=== PATIENT | female | born 1995 | race Caucasian/White ===

== ENCOUNTER 2016-10-23 03:51 | Emergency (ER) | payer MEDICAID, OTHER ==
--- NOTE | 2016-10-23 04:06 | C.PDOC ---
History Of Present Illness Patient presents to the ER with a complaint of RUQ pain that worsens with bowel movements. Denies fever, chills, nausea, or vomiting. Time Seen by Provider: 10/23/16 04:06 Chief Complaint (Nursing): Abdominal Pain History Per: Patient History/Exam Limitations: no limitations Onset/Duration Of Symptoms: Hrs Current Symptoms Are (Timing): Still Present Severity: Moderate Pain Scale Rating Of: 4 Location Of Pain/Discomfort: RUQ Radiation Of Pain To:: None Quality Of Discomfort: Unable To Describe Associated Symptoms: denies: Fever, Chills, Nausea, Vomiting Exacerbating Factors: None Alleviating Factors: None Recent travel outside of the [place]: No Abnormal Vaginal Bleeding: No Past Medical History Reviewed: Historical Data, Nursing Documentation, Vital Signs Vital Signs: Last Vital Signs Temp 98.8 F 10/23/16 04:07 Pulse 118 H 10/23/16 04:07 Resp 18 10/23/16 04:07 BP 111/75 10/23/16 04:07 Pulse Ox 100 10/23/16 06:16 - Medical History PMH: No Chronic Diseases Surgical History: No Surg Hx Family History: States: No Known Family Hx - Social History Hx Tobacco Use: No Hx Alcohol Use: No Hx Substance Use: No - Immunization History Hx Tetanus Toxoid Vaccination: No Hx Influenza Vaccination: Yes Hx Pneumococcal Vaccination: No Review Of Systems Constitutional: Negative for: Fever, Chills Gastrointestinal: Positive for: Abdominal Pain. Negative for: Nausea, Vomiting Physical Exam - Physical Exam Appears: Non-toxic Skin: Warm, Dry Oral Mucosa: Moist Chest: Symmetrical, No Tenderness Cardiovascular: Rhythm Regular, No Murmur Respiratory: No Rales, No Rhonchi, No Wheezing Gastrointestinal/Abdominal: Soft, Tenderness (RUQ) Neurological/Psych: Oriented x3 ED Course And Treatment - Laboratory Results Result Diagrams: 10/23/16 06:07 O2 Sat by Pulse Oximetry: 100 Pulse Ox Interpretation: Normal Progress Note: CT abd/pel and blood work ordered. Pepcid, toradol, and IV fluids administered. Disposition Counseled Patient/Family Regarding: Studies Performed, Diagnosis - Disposition Disposition Time: 04:06 Condition: UNKNOWN Forms: [facility] (Guinean) - Clinical Impression Clinical Impression: Abdominal pain - Scribe Statement The provider has reviewed the documentation as recorded by the Scribe Wai Amor All medical record entries made by the Scribe were at my direction and personally dictated by me. I have reviewed the chart and agree that the record accurately reflects my personal performance of the history, physical exam, medical decision making, and the department course for this patient. I have also personally directed, reviewed, and agree with the discharge instructions and disposition. Physician Patient Turnover Patient Signed Over To: Karuna Andrews Handoff Comments: pending labs, ct scan and dispo
[2016-10-23 04:12] VITALS: O2SAT 100
[2016-10-23 04:43] LABS: RBC URINE 21 /hpf (0-3); URINE BACTERIA RARE (<OCC); URINE BILIRUBIN NEGATIVE (NEGATIVE); URINE BLOOD 2+ (NEGATIVE); URINE COLOR Yellow (YELLOW); URINE GLUCOSE (UA) NORMAL (Normal); URINE KETONE TRACE mg/dL (NEGATIVE); URINE LEUKOCYTE ESTERASE 1+ Leu/uL (Negative); URINE PROTEIN NEGATIVE (NEGATIVE); URINE UROBILINOGEN NORMAL mg/dL (0.2-1.0); WBC URINE 9 /hpf (0-5)
[2016-10-23] MEDS ORDERED: Sodium Chloride 0.9% 1,000 ML IV ONE (05:36)
[2016-10-23] MEDS ORDERED: Sodium Chloride 0.9% 1,000 ML ONE (05:53)
[2016-10-23 06:12] LABS: BASO # 0.1 K/uL (0.0-0.2); BASO % 0.5 % (0.0-2.0); EOS # 0.1 K/uL (0.0-0.7); EOS % 0.5 % (0.0-4.0); HEMATOCRIT 40.6 % (34.0-47.0); LYMPH # 1.3 K/uL (1.0-4.3); LYMPH % 8.6 % (20.0-40.0); MEAN CELL VOLUME 80.6 fL (81.0-99.0); MEAN CORPUSCULAR HEMOGLOBIN 27.6 pg (27.0-31.0); MEAN CORPUSCULAR HGB CONC 34.2 g/dL (33.0-37.0); MEAN PLATELET VOLUME 7.7 fL (7.2-11.7); MONO # 1.3 K/uL (0.0-0.8); MONO % 8.8 % (0.0-10.0); PLATELET COUNT 216 K/uL (130-400); RED CELL DISTRIBUTION WIDTH 13.4 % (11.5-14.5); WHITE BLOOD COUNT 15.2 K/uL (4.8-10.8)
[2016-10-23] MEDS ORDERED: cefTRIAXone IV 1 gm in Dextros 50 ML IVPB ONE ×2 (06:16→06:24)
[2016-10-23 06:51] LABS: CHLORIDE 100 mmol/L (98-107); POTASSIUM 3.6 mmol/L (3.6-5.2); SODIUM 138 mmol/L (132-148)
[2016-10-23 06:53] LABS: CARBON DIOXIDE 23 mmol/L (22-30); GFR AFRICAN-AMERICAN > 60
[2016-10-23 06:54] LABS: ALB/GLOB RATIO 1.1 (1.0-2.1); ALKALINE PHOSPHATASE 59 U/L (38-126); ALT/SGPT 130 U/L (9-52); AST/SGOT 48 U/L (14-36); BLOOD UREA NITROGEN 12 mg/dL (7-17); GLUCOSE,RANDOM 126 mg/dL (65-105); TOTAL PROTEIN 6.7 g/dL (6.3-8.3)
[2016-10-23 06:56] LABS: NEUTROPHIL 77 % (50-75); TOTAL CELLS COUNTED 100
[2016-10-23] MEDS ORDERED: Iodixanol 320 MG/ML 100 ML BOTTLE IV ONE (07:49)
--- NOTE | 2016-10-23 09:06 | CT ---
PROCEDURE: CT Abdomen and Pelvis with contrast HISTORY: ruq pain COMPARISON: None. TECHNIQUE: Contrast dose: 100 mL Visipaque 320 Radiation dose: Total exam DLP = 1141.84 mGy-cm. This CT exam was performed using one or more of the following dose reduction techniques: Automated exposure control, adjustment of the mA and/or kV according to patient size, and/or use of iterative reconstruction technique. FINDINGS: LOWER THORAX: Unremarkable LIVER: Mild hepatomegaly. Diffuse fatty infiltration. No mass. No intrahepatic biliary ductal dilatation. GALLBLADDER AND BILE DUCTS: Unremarkable. PANCREAS: Unremarkable. No gross lesion or ductal dilatation. SPLEEN: Unremarkable. ADRENALS: Unremarkable. No mass. KIDNEYS AND URETERS: Unremarkable. No hydronephrosis. No solid mass. VASCULATURE: Unremarkable. No aortic aneurysm. BOWEL: Circumferential mural thickening of multiple loops of small bowel involving both jejunal and ileal loops, with some edema of the adjacent small bowel mesentery. This is consistent with a nonspecific enteritis. Mild diverticulosis of the transverse colon. No evidence of diverticulitis. No other abnormal bowel loops. Stomach is unremarkable. APPENDIX: Normal appendix. PERITONEUM: No ascites. Supraumbilical ventral hernia containing only mesenteric fat. LYMPH NODES: No retroperitoneal or pelvic lymphadenopathy. There are innumerable subcentimeter lymph nodes within the small bowel mesenteric consistent with nonspecific mesenteric adenitis. BLADDER: Poorly distended. No gross abnormality. REPRODUCTIVE: Unremarkable uterus. Right ovarian cyst, 3.1 cm. BONES: No acute fracture. OTHER FINDINGS: None. IMPRESSION: Findings consistent with nonspecific enteritis involving multiple loops of jejunum and ileum and edema of adjacent small bowel mesenteric. No evidence of bowel obstruction. Transverse colonic diverticulosis without evidence of diverticulitis. Mild hepatomegaly with fatty infiltration of the liver. 3.1 cm right ovarian cyst, nonspecific. Additional minor findings as above.
[2016-10-23 10:09] VITALS: BP 103/70; PULSE 88; RESP 20; TEMP 99.5
== END 2016-10-23 10:22 | disposition home or self-care (01) ==
LOC: C.ER 03:51
DX: R10.11 Right upper quadrant pain (principal)
CPT/HCPCS: 74177; 80053; 81001; 83690; 84703; 85025; 96361; 96365; 96375; 99284; J0696; J1885; J7040; Q9967

== ENCOUNTER 2017-05-01 08:46 | Emergency (ER) | payer SELFPAY ==
[2017-05-01 09:22] VITALS: BP 115/78; PULSE 112; RESP 20; TEMP 102; O2SAT 96
[2017-05-01] MEDS ORDERED: Penicillin G Benzathine 1.2 Mill Unit/2 ml Syr IM ONE ×2 (09:40→09:47)
--- NOTE | 2017-05-01 09:40 | C.PDOC ---
History Of Present Illness 21 year old female presents to the ED for evaluation of sore throat and subjective fever which began yesterday. Patient reports having sick contact with same. Reports positive cough, "because my throat hurts." Denies chest pain , shortness of breath. 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 SORE THROAT SUBJ FEVER SINCE YEST. +SICK CONTACT W SAME. +COUGH "BC MY THROAT HURTS". NO CP, SOB. 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 REQUESTING "SHOT" Time Seen by Provider: 05/01/17 09:36 Chief Complaint (Nursing): Flu-like Symptoms History Per: Patient History/Exam Limitations: no limitations Current Symptoms Are (Timing): Still Present Sick Contacts (Context): Family Member(s) Associated Symptoms: Fever, Sore Throat, Cough Additional History Per: Patient Past Medical History Reviewed: Historical Data, Nursing Documentation, Vital Signs Vital Signs: Last Vital Signs Temp 102 F H 05/01/17 09:21 Pulse 112 H 05/01/17 09:21 Resp 20 05/01/17 09:21 BP 115/78 05/01/17 09:21 Pulse Ox 96 05/01/17 09:41 - Medical History PMH: No Chronic Diseases Surgical History: No Surg Hx Family History: States: Unknown Family Hx - Social History Hx Tobacco Use: No Hx Alcohol Use: No Hx Substance Use: No - Immunization History Hx Tetanus Toxoid Vaccination: No Hx Influenza Vaccination: Yes Hx Pneumococcal Vaccination: No Review Of Systems Constitutional: Positive for: Fever ENT: Positive for: Throat Pain Cardiovascular: Negative for: Chest Pain Respiratory: Positive for: Cough. Negative for: Shortness of Breath Physical Exam - Physical Exam Appears: Non-toxic, Other (no acute respiratory distress ) Skin: Normal Color, Warm, Dry Head: Atraumatic, Normacephalic Eye(s): bilateral: Normal Inspection Ear(s): Bilateral: Normal Nose: Normal, No Discharge Oral Mucosa: Moist Throat: No Exudate, Other (pharyngitis. no swelling ) Neck: Supple Chest: Symmetrical, No Deformity, No Tenderness Cardiovascular: Rhythm Regular, No Murmur Respiratory: Normal Breath Sounds, No Rales, No Rhonchi, No Wheezing Extremity: Normal ROM, Capillary Refill (less than 2 seconds ) Neurological/Psych: Oriented x3, Normal Speech, Normal Cognition Gait: Steady ED Course And Treatment O2 Sat by Pulse Oximetry: 96 (on RA) Pulse Ox Interpretation: Normal Progress Note: Bicillin IM and Toradol IM administered. Medical Decision Making Medical Decision Making: PT OFFERED IM BICILLIN VS ABX X 10 DAYS. REQUESTING "SHOT" Disposition Counseled Patient/Family Regarding: Diagnosis, Need For Followup, Rx Given - Disposition Referrals: [facility] [Outside] [facility] [Outside] Disposition: HOME/ ROUTINE Disposition Time: 09:39 Condition: IMPROVED Prescriptions: Dexamethasone 12 mg PO ONCE #2 tab Ibuprofen [Motrin] 600 mg PO Q6 #30 tab Instructions: Pharyngitis (ED) Forms: [facility] (Wolof), Work Excuse - Clinical Impression Clinical Impression: Pharyngitis - Scribe Statement The provider has reviewed the documentation as recorded by the Scribe (Paulette Weiss) Provider Attestation: All medical record entries made by the Scribe were at my direction and personally dictated by me. I have reviewed the chart and agree that the record accurately reflects my personal performance of the history, physical exam, medical decision making, and the department course for this patient. I have also personally directed, reviewed, and agree with the discharge instructions and disposition.
== END 2017-05-01 09:53 | disposition home or self-care (01) ==
LOC: C.ER 08:46
DX: J02.9 Acute pharyngitis, unspecified (principal)
CPT/HCPCS: 96372; 99283; J0561; J1885

== ENCOUNTER 2017-09-02 20:03 | Emergency (ER) | payer OTHER ==
[2017-09-02 20:13] VITALS: BP 116/77; PULSE 90; TEMP 99.7; O2SAT 97
--- NOTE | 2017-09-02 20:26 | C.PDOC ---
History Of Present Illness 21 year old female presents to the ED c/o sore throat, cough productive of sputum, fever, generalized body aches, not feeling well for the past 2 weeks. Patient states she has been taking OTC Tylenol and Dayquil for her symptoms with no relief. Patient denies nausea, vomit, diarrhea, rash, recent travel, sick contacts. Time Seen by Provider: 09/02/17 20:19 Chief Complaint (Nursing): Fever History Per: Patient History/Exam Limitations: no limitations Onset/Duration Of Symptoms: Other (weeks) Current Symptoms Are (Timing): Still Present Location Of Pain: Throat, Diffuse Myalgias Sick Contacts (Context): None Associated Symptoms: Fever, Sore Throat, Myalgias Ear Symptoms: Bilateral: None Recent travel outside of the [place]: No Additional History Per: Patient Past Medical History Reviewed: Historical Data, Nursing Documentation, Vital Signs Vital Signs: Last Vital Signs Temp 99.7 F H 09/02/17 20:10 Pulse 90 09/02/17 20:10 Resp 18 09/02/17 20:48 BP 116/77 09/02/17 20:10 Pulse Ox 97 09/02/17 21:16 - Medical History PMH: Asthma Surgical History: No Surg Hx Family History: States: Unknown Family Hx - Social History Hx Tobacco Use: No Hx Alcohol Use: Yes Hx Substance Use: No - Immunization History Hx Tetanus Toxoid Vaccination: No Hx Influenza Vaccination: Yes Hx Pneumococcal Vaccination: No Review Of Systems Constitutional: Positive for: Fever, Malaise, Other (body aches). Negative for : Chills ENT: Negative for: Nose Discharge, Nose Congestion Respiratory: Positive for: Cough, Sputum. Negative for: Shortness of Breath Gastrointestinal: Negative for: Nausea, Vomiting Skin: Negative for: Rash Neurological: Negative for: Headache Physical Exam - Physical Exam Appears: Non-toxic, No Acute Distress Skin: Normal Color, Warm, Dry Head: Atraumatic, Normacephalic Eye(s): bilateral: Normal Inspection Ear(s): Bilateral: Normal Oral Mucosa: Moist Throat: Erythema (mild), No Exudate Neck: Normal ROM, Supple Chest: Symmetrical Cardiovascular: Rhythm Regular, No Murmur Respiratory: Normal Breath Sounds, No Accessory Muscle Use, No Rales, No Rhonchi , No Wheezing Extremity: Normal ROM, No Tenderness, No Swelling Neurological/Psych: Oriented x3, Normal Speech Gait: Steady ED Course And Treatment O2 Sat by Pulse Oximetry: 97 (ON RA) Pulse Ox Interpretation: Normal Medical Decision Making Medical Decision Making: Impression: sore throat, cough, fever, malaise Plan: * Zithromax 500 mg PO Patient remained afebrile alert and oriented with stable vital signs during ER evaluation. Patient appears non-toxic and in no distress. Rx given. Patient advised to rest, drink fluids and take medications for supportive treatment. Patient stable for discharge and given follow up instructions. Disposition Counseled Patient/Family Regarding: Diagnosis, Need For Followup, Rx Given - Disposition [facility] Disposition: HOME/ ROUTINE Disposition Time: 20:40 Condition: GOOD Additional Instructions: Vaya a cortez mdico o la clnica en 2-5 jackson sin falta, para mas evaluacin. [place] los medicamentos shakeel indicado. Volver a la kwaku de emergencia en cualquier momento si los sntomas persisten o empeoran. Prescriptions: Azithromycin [Zithromax] 250 mg PO DAILY #4 tab Instructions: Bacterial Upper Respiratory Infection, Adult (DC) Print Language: NIUEAN - POA Present On Arrival: None - Clinical Impression Clinical Impression: Upper respiratory infection - PA / MEDICAL RADIATION TECH / Resident Statement MD/DO has reviewed & agrees with the documentation as recorded. - Scribe Statement The provider has reviewed the documentation as recorded by the Scribe Roger Reid All medical record entries made by the Scribe were at my direction and personally dictated by me. I have reviewed the chart and agree that the record accurately reflects my personal performance of the history, physical exam, medical decision making, and the department course for this patient. I have also personally directed, reviewed, and agree with the discharge instructions and disposition.
[2017-09-02 20:48] VITALS: RESP 18
== END 2017-09-02 20:48 | disposition home or self-care (01) ==
LOC: C.ER 20:03
DX: J06.9 Acute upper respiratory infection, unspecified (principal)

== ENCOUNTER 2017-11-20 09:53 | Inpatient (IN) | payer OTHER ==
--- NOTE | 2017-11-20 10:56 | C.PDOC ---
History Of Present Illness 21 y/o female presents to the ED for evaluation of fever since 6:00am this morning. Associated with generalized bodyaches, runny nose, and mild sore throat. Patient denies any associated cough, vomiting, diarrhea, loss of appetite, rash, or other complaints. Additionally she reports a small ball in her mid-abdomen, which bothers her most when she is at work and moving around. She denies any recent travel. No sick contacts at home. No history of prior abdominal surgeries. Time Seen by Provider: 11/20/17 10:14 Chief Complaint (Nursing): Fever History Per: Patient History/Exam Limitations: no limitations Onset/Duration Of Symptoms: Hrs Current Symptoms Are (Timing): Still Present Location Of Pain: Throat, Diffuse Myalgias Sick Contacts (Context): None Recent travel outside of the [place]: No Past Medical History Reviewed: Historical Data, Nursing Documentation, Vital Signs Vital Signs: Last Vital Signs Temp 100.4 F H 11/20/17 17:43 Pulse 89 11/20/17 17:43 Resp 18 11/20/17 17:43 BP 98/62 L 11/20/17 17:43 Pulse Ox 98 11/20/17 17:43 - Medical History PMH: Asthma Surgical History: No Surg Hx Family History: States: Unknown Family Hx - Social History Hx Tobacco Use: No Hx Alcohol Use: Yes Hx Substance Use: No - Immunization History Hx Tetanus Toxoid Vaccination: No Hx Influenza Vaccination: Yes Hx Pneumococcal Vaccination: No Review Of Systems Except As Marked, All Systems Reviewed And Found Negative. Constitutional: Positive for: Fever, Other (generalized bodyaches) ENT: Positive for: Nose Discharge, Throat Pain Cardiovascular: Negative for: Chest Pain Respiratory: Negative for: Cough, Shortness of Breath, Wheezing Gastrointestinal: Positive for: Other (palpable "ball" to mid-abdomen). Negative for: Nausea, Vomiting, Diarrhea Genitourinary: Negative for: Dysuria, Frequency, Incontinence Musculoskeletal: Negative for: Neck Pain Skin: Negative for: Rash Physical Exam - Physical Exam Appears: Non-toxic, No Acute Distress Skin: Normal Color, Warm, Dry Head: Atraumatic, Normacephalic Eye(s): bilateral: Normal Inspection, PERRL, EOMI Ear(s): Bilateral: Normal Nose: Normal Oral Mucosa: Moist Throat: Normal, No Erythema, No Exudate Neck: Normal ROM, Supple Chest: Symmetrical Cardiovascular: Rhythm Regular, No Murmur Respiratory: Normal Breath Sounds, No Rales, No Rhonchi, No Wheezing Gastrointestinal/Abdominal: Bowel Sounds (normal), Soft, Mass (Soft, mobile mass to the abdomen above umbilicus, (+) mild tenderness to palpation), No Guarding, No Rebound Back: Normal Inspection, No CVA Tenderness Extremity: Bilateral: Atraumatic, Normal Color And Temperature, Normal ROM Neurological/Psych: Oriented x3, Normal Speech Gait: Steady ED Course And Treatment - Laboratory Results Result Diagrams: 11/20/17 11:41 11/20/17 11:41 Urine POC: Negative O2 Sat by Pulse Oximetry: 98 (RA) Pulse Ox Interpretation: Normal - Radiology CXR: Interpreted by Me, Viewed By Me CXR Interpretation: Yes: No Acute Disease - CT Scan/US CT Abd/Pelvis Other Rad Studies (CT/US): Read By Radiologist, Radiology Report Reviewed CT/US Interpretation: Accession No. : [id number]. Patient Name / ID : ADY BAUER / [id number]. Exam Date : 11/20/2017 13:52:46 ( Approved ). Study Comment : Sex / Age : F / 21Y. Creator : Luna Parson. Dictator : Joshua Goldman MD. Venue Attendant : Fork Truck Operator : Joshua Goldman MD. Approver2 : Report Date : 11/20/2017 14:10:42. My Comment : . This report is currently processing and HAS NOT BEEN OFFICIALLY SIGNED BY THE PHYSICIAN - ESTIMATED TIME OF APPROVAL IS 11/20/2017 14:35. Date of service: 11/20/2017. PROCEDURE: CT Abdomen and Pelvis with contrast. HISTORY: mid abd pain, mass above the umbilcus, ? hernia. COMPARISON: 10/23/2016. TECHNIQUE : Contrast dose: 100 mL Visipaque 320. Radiation dose: Total exam DLP = 1146.77 mGy-cm. This CT exam was performed using one or more of the following dose reduction techniques: Automated exposure control, adjustment of the mA and/ or kV according to patient size, and/or use of iterative reconstruction technique. FINDINGS: LOWER THORAX: Unremarkable. LIVER: Unremarkable. No gross lesion or ductal dilatation. GALLBLADDER AND BILE DUCTS: Unremarkable. PANCREAS: Unremarkable. No gross lesion or ductal dilatation. SPLEEN: Unremarkable. ADRENALS: Unremarkable. No mass. KIDNEYS AND URETERS: Unremarkable. No hydronephrosis. No solid mass. VASCULATURE: Unremarkable. No aortic aneurysm. BOWEL: Unremarkable. No obstruction. No gross mural thickening. APPENDIX: Normal appendix. PERITONEUM: No ascites or pneumoperitoneum. Numerous shotty subcentimeter nodes are seen in small bowel mesenteric as well as nodes medial to the cecum and ascending colon. Findings consistent with nonspecific mesenteric adenitis. The findings are similar to prior CT examination of 10/23/2016, raising the question of whether this is chronic process. There are 2 small supraumbilical ventral hernias containing mesenteric fat. Within the larger of these hernias, there is a small amount stranding of the mesenteric fat. This raises the possibility ischemia or infection. Follow-up advised. LYMPH NODES: No retroperitoneal or pelvic lymphadenopathy. BLADDER: Poorly distended. REPRODUCTIVE: Normal uterus. BONES: No acute fracture. OTHER FINDINGS: None. IMPRESSION: Nonspecific mesenteric adenitis. Two small supraumbilical ventral hernias containing mesenteric fat, the larger of which demonstrate mild stranding of the herniated mesenteric fat. This is a nonspecific finding but the possibility of ischemia or infection must be considered. Medical Decision Making Medical Decision Making: Initial Plan: --Tylenol 650 mg PO --Blood work --Urinalysis --Urine preg --Toradol 30 mg IM --Flu swab --Rapid strep test --Chest X-Ray --CT Abd/Pelvis Progress/Updates: Labs reviewed, WBC 12.6k. Negative flu. Negative strep. Urine shows (+) leuks, WBC, rare bacteria. CT findings discussed with patient. [address] Chappell, surgery on-call, for consult of possible incarcerated hernia. 1526 Called the OR, Dr. Chappell not present. 1600 2nd call placed to Dr. Chappell. 1640 3rd call placed to Dr. Chappell. [address] Olivares for surgical consult. 164 Spoke with residential roofer, who will evaluate patient in the ER. 1700 Dr. Chappell returned call, and will see the patient in the ER. 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 - Scribe Statement The provider has reviewed the documentation as recorded by the Scribe (Stacey Patricia) All medical record entries made by the Scribe were at my direction and personally dictated by me. I have reviewed the chart and agree that the record accurately reflects my personal performance of the history, physical exam, medical decision making, and the department course for this patient. I have also personally directed, reviewed, and agree with the discharge instructions and disposition.
[2017-11-20] MEDS ORDERED: Iohexol 240 (50 ml) PO STA (11:03)
[2017-11-20] MEDS ORDERED: Iohexol 240 (50 ml) ONE (11:45)
[2017-11-20 11:48] LABS: BASO # 0.1 K/uL (0.0-0.2); BASO % 0.6 % (0.0-2.0); EOS % 0.1 % (0.0-4.0); HEMOGLOBIN 13.6 g/dL (11.0-16.0); LYMPH # 1.3 K/uL (1.0-4.3); MEAN CELL VOLUME 81.1 fL (81.0-99.0); MEAN CORPUSCULAR HEMOGLOBIN 27.4 pg (27.0-31.0); MEAN CORPUSCULAR HGB CONC 33.8 g/dL (33.0-37.0); MEAN PLATELET VOLUME 7.3 fL (7.2-11.7); MONO # 0.7 K/uL (0.0-0.8); MONO % 5.7 % (0.0-10.0); NEUT # 10.6 K/uL (1.8-7.0); NEUT % 83.6 % (50.0-75.0); RBC 4.95 Mil/uL (3.80-5.20); RED CELL DISTRIBUTION WIDTH 14.1 % (11.5-14.5); WHITE BLOOD COUNT 12.6 K/uL (4.8-10.8)
[2017-11-20 11:55] LABS: HCG,QUALITATIVE URINE NEGATIVE (NEGATIVE)
[2017-11-20 12:03] LABS: SQUAMOUS EPITHIAL 6 /hpf (0-5); URINE BACTERIA RARE (<OCC); URINE BILIRUBIN NEGATIVE (NEGATIVE); URINE BLOOD 2+ (NEGATIVE); URINE CLARITY Clear (Clear); URINE COLOR Yellow (YELLOW); URINE GLUCOSE (UA) NORMAL (Normal); URINE LEUKOCYTE ESTERASE 1+ Leu/uL (Negative); URINE PROTEIN NEGATIVE (NEGATIVE); URINE UROBILINOGEN NORMAL mg/dL (0.2-1.0)
[2017-11-20 12:12] LABS: ALB/GLOB RATIO 1.3 (1.0-2.1); ALBUMIN 4.3 g/dL (3.5-5.0); ALT/SGPT 57 U/L (9-52); AST/SGOT 34 U/L (14-36); BLOOD UREA NITROGEN 13 mg/dL (7-17); CALCIUM 9.3 mg/dl (8.6-10.4); GFR NON-AFRICAN AMERICAN > 60
--- NOTE | 2017-11-20 13:17 | RAD ---
Date of service: 11/20/2017 PROCEDURE: CHEST RADIOGRAPH, 1 VIEW HISTORY: fever, cough COMPARISON: None available. FINDINGS: LUNGS: Clear. PLEURA: No pneumothorax or pleural fluid seen. CARDIOVASCULAR: Normal. OSSEOUS STRUCTURES: No significant abnormalities. VISUALIZED UPPER ABDOMEN: Normal. OTHER FINDINGS: None. IMPRESSION: No active disease.
--- NOTE | 2017-11-20 14:30 | CT ---
Date of service: 11/20/2017 PROCEDURE: CT Abdomen and Pelvis with contrast HISTORY: mid abd pain, mass above the umbilcus, ? hernia COMPARISON: 10/23/2016 TECHNIQUE: Contrast dose: 100 mL Visipaque 320 Radiation dose: Total exam DLP = 1146.77 mGy-cm. This CT exam was performed using one or more of the following dose reduction techniques: Automated exposure control, adjustment of the mA and/or kV according to patient size, and/or use of iterative reconstruction technique. FINDINGS: LOWER THORAX: Unremarkable. LIVER: Unremarkable. No gross lesion or ductal dilatation. GALLBLADDER AND BILE DUCTS: Unremarkable. PANCREAS: Unremarkable. No gross lesion or ductal dilatation. SPLEEN: Unremarkable. ADRENALS: Unremarkable. No mass. KIDNEYS AND URETERS: Unremarkable. No hydronephrosis. No solid mass. VASCULATURE: Unremarkable. No aortic aneurysm. BOWEL: Unremarkable. No obstruction. No gross mural thickening. APPENDIX: Normal appendix. PERITONEUM: No ascites or pneumoperitoneum. Numerous shotty subcentimeter nodes are seen in small bowel mesenteric as well as nodes medial to the cecum and ascending colon. Findings consistent with nonspecific mesenteric adenitis. The findings are similar to prior CT examination of 10/23/2016, raising the question of whether this is chronic process. There are 2 small supraumbilical ventral hernias containing mesenteric fat. Within the larger of these hernias, there is a small amount stranding of the mesenteric fat. This raises the possibility ischemia or infection. Follow-up advised. LYMPH NODES: No retroperitoneal or pelvic lymphadenopathy. BLADDER: Poorly distended REPRODUCTIVE: Normal uterus BONES: No acute fracture. OTHER FINDINGS: None. IMPRESSION: Nonspecific mesenteric adenitis. Two small supraumbilical ventral hernias containing mesenteric fat, the larger of which demonstrate mild stranding of the herniated mesenteric fat. This is a nonspecific finding but the possibility of ischemia or infection must be considered.
[2017-11-20 17:44] LABS: INR 1.3; PROTHROMBIN TIME 14.2 SECONDS (9.7-12.2)
[2017-11-20] MEDS ORDERED: Propofol 10 mg/ml Inj (20 ML) ONE (18:28)
[2017-11-20] MEDS ORDERED: Midazolam 2 MG/2 ML VIAL ONE (18:28)
[2017-11-20] MEDS ORDERED: ceFAZolin IV 1 gm in Dextrose 2 GM/100 ML BAG IVPB ONE (18:39)
[2017-11-20] MEDS ORDERED: Succinylcholine Chloride 20 mg/ml Syr (5 ml) IV ONE (19:09)
[2017-11-20] MEDS ORDERED: Rocuronium 10 mg/ml (5 ml) ONE (19:09)
[2017-11-20] MEDS ORDERED: Oxycodone/Acetaminophen 5/325 mg Tab PO PRN (19:42)
[2017-11-20] MEDS ORDERED: Lactated Ringer's 1,000 ML IV ONE ×2 (19:53)
[2017-11-20] MEDS: Lactated Ringer's 1,000 ML IV SCH (20:45)
[2017-11-20 21:06] VITALS: RESP 20
[2017-11-20] MEDS ORDERED: Pneumococcal 23-Valent Vaccine IM ONE (21:15)
[2017-11-20] MEDS: Dextrose 5%/0.45% NS 1,000 ML IV SCH (21:33)
--- NOTE | 2017-11-20 23:22 | CP.PCM.CON ---
Past Patient History - Infectious Disease Hx of Infectious Diseases: None - Past Medical History & Family History Past Medical History?: Yes - Past Social History Smoking Status: Never Smoked - PULMONARY Hx Asthma: Yes - MUSCULOSKELETAL/RHEUMATOLOGICAL Hx Falls: No - PSYCHIATRIC Hx Substance Use: No - SURGICAL HISTORY Hx Surgeries: No - ANESTHESIA Hx Anesthesia: No Hx Anesthesia Reactions: Yes Hx Malignant Hyperthermia: No Meds Allergies/Adverse Reactions: Allergies Allergy/AdvReac Type Severity Reaction Status Date / Time No Known Allergies Allergy Verified 11/20/17 09:59 - Medications Medications: Current Medications Docusate Sodium (Colace) 100 mg PO BID [facility] Enoxaparin Sodium (Lovenox) 30 mg SC DAILY [facility] Lactated Ringer's (Lactated Ringer's) 1,000 mls @ 100 mls/hr IV .Q10H [facility] Last Admin: 11/20/17 20:45 Dose: 100 mls/hr Dextrose/Sodium Chloride (Dextrose 5%/0.45% Ns 1000 Ml) 1,000 mls @ 80 mls/hr IV .[id number] [facility] Last Admin: 11/20/17 21:33 Dose: Not Given Ketorolac Tromethamine (Toradol) 30 mg IVP Q6 PRN PRN Reason: pain 8-10 Stop: 11/25/17 19:43 Ondansetron HCl (Zofran Inj) 4 mg IVP Q6 PRN PRN Reason: Nausea/Vomiting Oxycodone/Acetaminophen (Percocet 5/325 Mg Tab) 2 tab PO Q4H PRN PRN Reason: pain Stop: 11/23/17 19:43 Pantoprazole Sodium (Protonix Inj) 40 mg IVP DAILY [facility] Results - Vital Signs Recent Vital Signs: Last Vital Signs Temp 99.2 F 11/20/17 21:05 Pulse 90 11/20/17 21:05 Resp 20 11/20/17 21:05 BP 132/76 11/20/17 21:05 Pulse Ox 93 L 11/20/17 21:05 - Labs Result Diagrams: 11/20/17 11:41 11/20/17 11:41 Labs: Laboratory Results - last 24 hr 11/20/17 11/20/17 11/20/17 11:41 11:41 11:41 WBC 12.6 H RBC 4.95 Hgb 13.6 Hct 40.2 MCV 81.1 MCH 27.4 MCHC 33.8 RDW 14.1 Plt Count 240 MPV 7.3 Neut % (Auto) 83.6 H Lymph % (Auto) 10.0 L Harney % (Auto) 5.7 Eos % (Auto) 0.1 Baso % (Auto) 0.6 Neut # (Auto) 10.6 H Lymph # (Auto) 1.3 Harney # (Auto) 0.7 Eos # (Auto) 0.0 Baso # (Auto) 0.1 PT INR APTT Sodium Potassium Chloride Carbon Dioxide Anion Gap BUN Creatinine Est GFR ( Amer) Est GFR (Non-Af Amer) Random Glucose Calcium Total Bilirubin AST ALT Alkaline Phosphatase Total Protein Albumin Globulin Albumin/Globulin Ratio Urine Color Yellow Urine Clarity Clear Urine pH 5.0 Ur Specific [place] 1.015 Urine Protein Negative Urine Glucose (UA) Normal Urine Ketones Negative Urine Blood 2+ H Urine Nitrate Negative Urine Bilirubin Negative Urine Urobilinogen Normal Ur Leukocyte Esterase 1+ H Urine WBC (Auto) 14 H Urine RBC (Auto) 19 H Ur Squamous Epith Cells 6 H Urine Bacteria Rare Urine HCG, Qual Negative Influenza Typ A,B (EIA) Negative for flu a/b Grp A Beta Strep Ag 11/20/17 11/20/17 11/20/17 11:41 11:41 17:33 WBC RBC Hgb Hct MCV MCH MCHC RDW Plt Count MPV Neut % (Auto) Lymph % (Auto) Harney % (Auto) Eos % (Auto) Baso % (Auto) Neut # (Auto) Lymph # (Auto) Harney # (Auto) Eos # (Auto) Baso # (Auto) PT 14.2 H INR 1.3 APTT 25 Sodium 137 Potassium 4.2 Chloride 101 Carbon Dioxide 24 Anion Gap 16 BUN 13 Creatinine 0.6 L Est GFR ( Amer) > 60 Est GFR (Non-Af Amer) > 60 Random Glucose 109 H Calcium 9.3 Total Bilirubin 0.7 AST 34 ALT 57 H D Alkaline Phosphatase 51 Total Protein 7.7 Albumin 4.3 Globulin 3.3 Albumin/Globulin Ratio 1.3 Urine Color Urine Clarity Urine pH Ur Specific Valley Urine Protein Urine Glucose (UA) Urine Ketones Urine Blood Urine Nitrate Urine Bilirubin Urine Urobilinogen Ur Leukocyte Esterase Urine WBC (Auto) Urine RBC (Auto) Ur Squamous Epith Cells Urine Bacteria Urine HCG, Qual Influenza Typ A,B (EIA) Grp A Beta Strep Ag Negative
[2017-11-20 23:57] VITALS: O2SAT 96
[2017-11-21] MEDS: Dextrose 5%/0.45% NS 1,000 ML IV SCH (06:00)
[2017-11-21] MEDS: Lactated Ringer's 1,000 ML IV SCH (06:00)
[2017-11-21 06:58] LABS: BASO % 0.2 % (0.0-2.0); EOS % 0.1 % (0.0-4.0); HEMOGLOBIN 14.1 g/dL (11.0-16.0); LYMPH # 1.2 K/uL (1.0-4.3); MEAN CELL VOLUME 81.9 fL (81.0-99.0); MEAN CORPUSCULAR HEMOGLOBIN 27.7 pg (27.0-31.0); MEAN CORPUSCULAR HGB CONC 33.8 g/dL (33.0-37.0); MEAN PLATELET VOLUME 7.7 fL (7.2-11.7); MONO # 0.3 K/uL (0.0-0.8); NEUT % 81.7 % (50.0-75.0); RBC 5.08 Mil/uL (3.80-5.20); RED CELL DISTRIBUTION WIDTH 13.8 % (11.5-14.5); WHITE BLOOD COUNT 8.6 K/uL (4.8-10.8)
--- NOTE | 2017-11-21 07:21 | OP ---
Copied To: Sen Chappell MD Attending MD: Sen Chappell MD PROCEDURE DATE: 11/20/2017 PREOPERATIVE DIAGNOSIS: Incarcerated midline ventral hernia. POSTOPERATIVE DIAGNOSES: Incarcerated midline ventral hernia with multiple adhesions. PROCEDURES PERFORMED: Repair of incarcerated midline ventral hernia with extensive lysis of adhesions, repair of small bowel and transverse colon dissection injuries. SURGEON: Sen Chappell MD ANESTHESIA: General. BLOOD LOSS: 30 mL. POSTOP CONDITION: Stable. INDICATION FOR SURGERY: A 21-year-old female, morbidly obese who presents with a large midline incarcerated hernia, taken to the operating room for emergent repair. GROSS FINDINGS: There was a large midline incarcerated hernia containing omentum. There were several adhesions in the region, which had to be taken down prior to primary repair being performed. DESCRIPTION OF PROCEDURE: The patient was taken to the operating room, general anesthesia was administered, and the abdomen was prepped and draped. A transverse incision was made and the incision was carried down to the abdominal wall where a large midline hernia sac was encountered, dissected down to its base and transected using the Bovie. There were multiple adhesions noted above the hernia sac and the surrounding area from an inflammatory process. The omentum was taken down as well as both small bowel and transverse colon. Full-thickness serosal injuries were noted despite careful dissection, and these were repaired with a TA-30 mike, both the small bowel and colon. There was no gross spillage; however, the abdomen was then irrigated with saline. The abdominal wall hernia defect, which was then trimmed and a primary repair using interrupted #1 Novafil was performed. The subcutaneous fascia was then vigorously irrigated with saline, closed in layers with heavy Monocryl, subcuticular Monocryl, and skin clips. The patient tolerated the procedure well. Returned to recovery room in stable condition. Sen Chappell MD
[2017-11-21 07:26] LABS: BLOOD UREA NITROGEN 9 mg/dL (7-17); CALCIUM 8.9 mg/dl (8.6-10.4); GFR NON-AFRICAN AMERICAN > 60
[2017-11-21 08:14] VITALS: BP 110/65; PULSE 79; TEMP 98.7
[2017-11-21] MEDS ORDERED: Enoxaparin 30 mg Syringe SC SCH (10:00)
--- NOTE | 2017-11-21 20:44 | CP.PCM.PN ---
Objective - Vital Signs/Intake and Output Vital Signs (last 24 hours): Temp Pulse Resp BP Pulse Ox 98.7 F 79 20 110/65 96 11/21/17 08:00 11/21/17 08:00 11/21/17 08:00 11/21/17 08:00 11/21/17 08:00 Intake and Output: 11/21/17 11/22/17 18:59 06:59 Intake Total 1120 Balance 1120 - Labs Labs: 11/21/17 06:42 11/21/17 06:42 PT 14.2 SECONDS (9.7-12.2) H 11/20/17 17:33 INR 1.3 11/20/17 17:33 APTT 25 SECONDS (21-34) 11/20/17 17:33
--- NOTE | 2017-11-22 06:06 | PN ---
Copied To: Jaren Billingsley MD Attending MD: Jaren Billingsley MD DATE: 11/21/2017 SUBJECTIVE: The patient, Saeed, was feeling better. Decreased abdominal pain. No nausea or vomiting. Urine culture is negative. Blood cultures are negative. cultures are negative. PHYSICAL EXAMINATION: VITAL SIGNS: BP 116/65, pulse 79, respiratory rate 20, temperature 98.7. LUNGS: Clear. CVS: S1 and S2 regular. ABDOMEN: Soft. ASSESSMENT: Urinary tract infection. PLAN: Discharge the patient. Jaren Billingsley MD
== END 2017-11-21 15:16 | disposition home or self-care (01) | DRG 149 ==
LOC: C.ER 09:53 → C.9E 17:57 → C.9S 18:46 → C.3T 20:47
PROVIDERS: ADMIT Surgery; ATTEND Surgery
PROC: 0DNU0ZZ Release Omentum, Open Approach (ICD-10-PCS; 2017-11-20)
PROC: 0DQL0ZZ Repair Transverse Colon, Open Approach (ICD-10-PCS; 2017-11-20)
PROC: 0DQ80ZZ Repair Small Intestine, Open Approach (ICD-10-PCS; 2017-11-20)
PROC: 0WQF0ZZ Repair Abdominal Wall, Open Approach (ICD-10-PCS; principal; 2017-11-20 18:00)
DX: K43.6 Other and unspecified ventral hernia with obstruction, without gangrene (principal); K66.0 Peritoneal adhesions (postprocedural) (postinfection); I88.0 Nonspecific mesenteric lymphadenitis; J45.909 Unspecified asthma, uncomplicated